=== PATIENT | female | born 1950 | race Two or more races ===

== ENCOUNTER 2016-08-06 10:14 | Day surgery (SDC) | payer MEDICAID ==
[2016-08-06] MEDS ORDERED: LIDOCAINE 1% 2 ML INJ ID PRN (10:58)
[2016-08-06] MEDS ORDERED: LR 1,000 ML IV SCH (11:00)
[2016-08-06] MEDS ORDERED: fentaNYL 100 MCG/2 ML INJ ONE (11:50)
[2016-08-06] MEDS ORDERED: PROPOFOL/EMULSION 500 MG/50 ML BOTTLE IV ONE (11:50)
[2016-08-06] MEDS ORDERED: LIDOCAINE 2% 5 ML SDV ONE (11:50)
[2016-08-06] MEDS ORDERED: oxyCODONE IR 5 MG TAB ONE (12:36)
--- NOTE | 2016-08-06 13:34 | GPN ---
[f rep st] PROCEDURE NOTE DATE OF PROCEDURE: 08/06/2016 PROCEDURE: Colonoscopy. INDICATION: The patient is a 65-year-old female who presents with a history of adenomas who presents for surveillance colonoscopy. CONSENT: Risks, benefits, and alternatives of the procedure were discussed in great detail with the patient, as well as the son who was present. Risks of infection, bleeding, perforation, and sedation were discussed. All questions were answered. Informed consent was obtained. MEDICATIONS: Propofol. Please see Anesthesiology report for details. ESTIMATED BLOOD LOSS: None. COLONOSCOPIC EVALUATION: A rectal exam was performed and no palpable mass was felt. The scope was introduced via the rectum and advanced to the cecum, where the ileocecal valve and appendiceal orifice were seen. The patient was noted to have scattered diverticula in the sigmoid colon, descending colon, transverse colon, and ascending colon. No masses or polyps were seen. IMPRESSION: 1. Diverticulosis. 2. No polyps seen. RECOMMENDATIONS: 1. Fiber supplementation. 2. Repeat colonoscopy in 5 years. /[id number]/MODL MTDD
== END 2016-08-06 14:00 | disposition home or self-care (01) ==
LOC: FSGY 10:14
PROVIDERS: ATTEND Internal Medicine Gastroenterology
PROC: 0DJD8ZZ Inspection of Lower Intestinal Tract, Via Natural or Artificial Opening Endoscopic (ICD-10-PCS; principal; 2016-08-06 11:45)
DX: Z12.11 Encounter for screening for malignant neoplasm of colon (principal); K57.30 Diverticulosis of large intestine without perforation or abscess without bleeding; I10 Essential (primary) hypertension; E11.9 Type 2 diabetes mellitus without complications; M06.9 Rheumatoid arthritis, unspecified
CPT/HCPCS: J2704; J3010

== ENCOUNTER → 2016-12-12 | Outpatient (CLI) | payer OTHER, MEDICAID | LOC: FIMAGING 10:09 | PROVIDERS: ATTEND Family Medicine | DX: M46.94 Unspecified inflammatory spondylopathy, thoracic region (principal); M48.06 Spinal stenosis, lumbar region; M51.36 Other intervertebral disc degeneration, lumbar region; M51.86 Other intervertebral disc disorders, lumbar region; C43.9 Malignant melanoma of skin, unspecified ==

== ENCOUNTER 2017-01-23 10:23 | Day surgery (SDC) | payer MEDICAID, OTHER ==
[~2017-01-23 10:23] MED LIST: NS 1,000 ML IV SCH
[2017-01-23] MEDS ORDERED: NALOXONE HCL 0.4 MG/ML INJ ONE (11:38)
[2017-01-23] MEDS ORDERED: MIDAZOLAM 2 MG/2 ML VIAL ONE (11:38)
[2017-01-23] MEDS ORDERED: FLUMAZENIL 0.5 MG/5 ML MDV IVP ONE (11:38)
[2017-01-23] MEDS ORDERED: fentaNYL 100 MCG/2 ML INJ ONE (11:38)
[2017-01-23] MEDS ORDERED: ONDANSETRON 4 MG/2 ML VIAL IVP PRN (16:11)
[2017-01-23] MEDS ORDERED: ACETAMINOPHEN 325 MG TAB PO PRN (16:11)
[2017-01-23 17:17] VITALS: BP 125/53; RESP 10; O2SAT 90
== END 2017-01-23 17:07 | disposition home or self-care (01) ==
LOC: FIMAGING 10:23
PROVIDERS: ATTEND Internal Medicine Hematology & Oncology
PROC: 0B9G3ZX Drainage of Left Upper Lung Lobe, Percutaneous Approach, Diagnostic (ICD-10-PCS; principal; 2017-01-23 14:00)
PROC: 0BBG3ZX Excision of Left Upper Lung Lobe, Percutaneous Approach, Diagnostic (ICD-10-PCS; principal; 2017-01-23 14:00)
DX: D14.32 Benign neoplasm of left bronchus and lung (principal); J95.830 Postprocedural hemorrhage of a respiratory system organ or structure following a respiratory system procedure; R04.2 Hemoptysis; C90.00 Multiple myeloma not having achieved remission; R74.0 Nonspecific elevation of levels of transaminase and lactic acid dehydrogenase [LDH]; I10 Essential (primary) hypertension; M06.9 Rheumatoid arthritis, unspecified; E11.9 Type 2 diabetes mellitus without complications; M51.36 Other intervertebral disc degeneration, lumbar region; M85.80 Other specified disorders of bone density and structure, unspecified site; E03.9 Hypothyroidism, unspecified; Z87.442 Personal history of urinary calculi; Z79.52 Long term (current) use of systemic steroids
CPT/HCPCS: J2250; J2310; J3010

== ENCOUNTER → 2018-02-13 | Outpatient (CLI) | payer OTHER, MEDICAID | LOC: FIMAGING 11:57 | PROVIDERS: ATTEND Anesthesiology | DX: M50.321 Other cervical disc degeneration at C4-C5 level (principal) ==

== ENCOUNTER 2018-02-19 05:53 | Observation (INO) | payer OTHER, MEDICAID ==
--- NOTE | 2018-02-14 08:46 | GHP ---
[f rep st] PREOP HISTORY AND PHYSICAL DATE OF ADMISSION: 02/19/2018 PROBLEM: Right knee arthritis. HISTORY OF PRESENT ILLNESS: The patient is a 67-year-old woman with rheumatoid arthritis. She has a dvanced rheumatoid arthritis in her right knee. She has pain in both knees. The pain has been progr essive over the last couple of years. Her activities are now very limited. She is no longer mobile. She complains of popping. She receives Humira injections for rheumatoid arthritis. She is treated for hypertension and anxiety/depression. She has had abnormal liver functions in the past and was told that she had a fatty liver. PAST MEDICAL HISTORY: Treatment for hypertension, rheumatoid arthritis and anxiety/depression. No h istory of heart disease, DVT, hepatitis, MRSA staph infection, sleep apnea or bleeding problems. CURRENT MEDICATIONS: Amlodipine 10 mg per day. Clonazepam 0.5 mg daily. Duloxetine 30 mg per day. Escitalopram a.m. 20 mg per day. Humira injections every 2 weeks. She stopped that 4 weeks prior to surgery. She has used prednisone in the past for her rheumatoid arthritis although she stop that in preparation for her surgery. Celebrex 100 mg per day. Tizanidine 2 mg at bedtime for sleep. Ateno lol 50 mg per day. She also takes 1 baby aspirin per day but she stopped it in preparation for her s urgery. ALLERGIES: Drug allergy: None. Metal allergy: None. Latex allergy: None. SOCIAL HISTORY: The patient is . She does not smoke cigarettes or drink alcohol. Her Englis h is limited. Her son, Ugo, has done the translating. PHYSICAL EXAMINATION: VITAL SIGNS: Height 5 feet 2 inches. Weight 110 pounds. BMI 20.1. EYES: C onjunctivae and sclerae are clear. Pupils are round and reactive. MOUTH: Good oral hygiene. No lo ose teeth. CHEST: Clear. HEART: Regular rhythm, no murmurs. EXTREMITIES: Pertinent findings pryor ited to her right knee. She has a mild effusion. Full extension and 90 degrees of flexion. She has very coarse patellofemoral crepitation with knee flexion. Her ligaments are stable. Her patella is tender to manipulation. IMPRESSION ON ADMISSION: 1. Right knee rheumatoid arthritis, primarily involving the patellofemoral joint. 2. Rheumatoid arthritis. 3. Treatment for hypertension. 4. Treatment for anxiety/depression. PLAN: She will undergo a right total knee arthroplasty. The surgery has been described to her throu gh her son including the risks, complications, expectations, and recovery time. I have stressed the importance of postoperative physical therapy. I have advised her that a small percentage of people d o not get a satisfactory result with a total knee replacement. All of their questions have been answ ered, and she consents to surgery. Copy requested to: Dr. Jakub Miller /[id number]/MODL
[~2018-02-19 05:53] MED LIST changes: -NS 1,000 ML IV SCH; +ROPIVACAINE 0.2% 80 MG, EPINEPHrine 0.2 MG, KETOROLAC TROMETHAMINE 30 MG in SYRINGE 0 ML IU ONE; +TRANEXAMIC ACID 1,000 MG in NS 100 ML IV ONE; +TRANEXAMIC ACID 3,000 MG in NS (SYRINGE) 50 ML IRR ONE
[2018-02-19] MEDS ORDERED: ceFAZolin 2 GM/DEXTROSE 100 ML IV ONE (05:55)
[2018-02-19] MEDS ORDERED: POVIDONE-IODINE 20 ML in SODIUM CL IRRIG SOLUTION 500 ML IRR ONE (05:55)
[2018-02-19] MEDS ORDERED: ONDANSETRON 4 MG/2 ML VIAL IVP ONE (05:55)
[2018-02-19] MEDS ORDERED: GABAPENTIN 300 MG CAP PO ONE (05:55)
[2018-02-19] MEDS ORDERED: FAMOTIDINE 20 MG TAB PO ONE (05:55)
[2018-02-19] MEDS ORDERED: DEXAMETHASONE 4 MG/ML VIAL IVP ONE (05:55)
[2018-02-19] MEDS ORDERED: ACETAMINOPHEN 325 MG TAB PO ONE (05:55)
[2018-02-19] MEDS ORDERED: LIDOCAINE 1% 2 ML INJ ID PRN (05:56)
[2018-02-19] MEDS ORDERED: LR 1,000 ML IV ONE (05:56)
[2018-02-19] MEDS ORDERED: TRANEXAMIC ACID 1,000 MG in NS 100 ML IV ONE (06:00)
[2018-02-19] MEDS ORDERED: ROPIVACAINE 0.2% 80 MG, EPINEPHrine 0.2 MG, KETOROLAC TROMETHAMINE 30 MG in SYRINGE 0 ML IU ONE (06:00)
[2018-02-19] MEDS ORDERED: TRANEXAMIC ACID 3,000 MG/50 ML BAG IRR ONE (06:36)
[2018-02-19] MEDS ORDERED: VANCOMYCIN 1 GM VIAL ONE (06:37)
[2018-02-19] MEDS ORDERED: ceFAZolin 1 GM/5 ML SYR ONE (06:37)
--- NOTE | 2018-02-19 07:04 | PDHPUP ---
History & Physical Update H&P update statement: This history and physical update is based on an assessment of the patient which was completed after admission or registration (within 24 hours), but prior to the surgery/procedure. H&P update: H&P reviewed & patient examined
[2018-02-19] MEDS ORDERED: MIDAZOLAM 2 MG/2 ML VIAL IVP ONE (07:06)
--- NOTE | 2018-02-19 07:06 | PDANEPAE ---
ANE History of Present Illness 67 yo for tka ANE Past Medical History - Cardiovascular History Hx Hypertension: Yes Hx Arrhythmias: No Hx Chest Pain: No Hx Coronary Artery / Peripheral Vascular Disease: No Hx CHF / Valvular Disease: No Hx Palpitations: No Cardiovascular History Comment: NO CP - Pulmonary History Hx COPD: No Hx Asthma/Reactive Airway Disease: No Hx Recent Upper Respiratory Infection: No Hx Oxygen in Use at Home: No Hx Sleep Apnea: No Sleep Apnea Screening Result - Last Documented: Negative - Neurologic History Hx Cerebrovascular Accident: No Hx Seizures: No Hx Dementia: No - Endocrine History Hx Diabetes: Yes Endocrine History Comment: PREDIABETIC - NO MEDS - Renal History Hx Renal Disorders: No - Liver History Hx Hepatic Disorders: Yes Hepatic History Comment: ELEV ENZYMES RECENTLY - Neurological & Psychiatric Hx Hx Neurological and Psychiatric Disorders: Yes Neurological / Psychiatric History Comment: Anxiety - Cancer History Hx Cancer: No - Congenital Disorder History Hx Congenital Disorders: No - GI History Hx Gastrointestinal Disorders: Yes Gastrointestinal History Comment: ACID REFLUX - Other Health History Other Health History: RHEUMATOID ARTHRITIS - Chronic Pain History Chronic Pain: Yes (CHRONIC PAIN KNEES, ELBOWS, HIPS, SHOULDERS) - Surgical History Prior Surgeries: GALL STONES. HYSTERECTOMY. COLONOSCOPY. Bone marrow biopsy ANE Review of Systems Review of Systems: - Exercise capacity METS (RN): 2 METS ANE Patient History - Allergies Allergies/Adverse Reactions: metoclopramide HCl [From Reglan] Allergy (Verified 02/11/18 14:03) Hives - Home Medications Home medications: home medication list seen and reviewed Home Medications: Atenolol [Tenormin 50 mg (*)] 50 mg PO DAILY 02/11/18 [Last Taken 02/19/18 03:00 ] Betamethasone Bailey 0.1% [Betamethasone Bailey 0.1% (*)] 1 vilma TOP DAILY PRN [Last Taken 02/05/18] Calcium Carb W/Vit D [Calcium Carb W/Vit D 500/200 (*)] 500 mg PO BID 02/11/18 [ Last Taken 02/05/18] DULoxetine [Cymbalta 30 MG (*)] 30 mg PO DAILY 02/11/18 [Last Taken 02/17/18 21: 00] Mirtazapine [Remeron] 30 mg PO HS 02/11/18 [Last Taken 02/17/18 21:00] Omeprazole 40 mg PO DAILY 02/11/18 [Last Taken 02/19/18 03:00] amLODIPine BESYLATE [Norvasc 10 mg (*)] 10 mg PO DAILY 02/11/18 [Last Taken 03:00] celeCOXIB [CeleBREX] 100 mg PO BID 02/11/18 [Last Taken 02/18/18 21:00] fentaNYL [Duragesic 12 MCG Patch (*)] 12 mcg TD Q72H 02/11/18 [Last Taken 18:00] oxyCODONE HCL/ACETAMINOPHEN [Percocet 10-325 mg Tablet] 1 each PO Q6H PRN [Last Taken 02/18/18 21:00] - Smoking Hx Smoking Status: Never smoked - Family Anes Hx Family Hx Anesthesia Complications: NEG ANE Labs/Vital Signs - Vital Signs Height: 5 ft 3.5 in Weight: 66.678 kg ANE Physical Exam - Airway Neck exam: FROM Mallampati Score: Class 2 Mouth exam: normal dental/mouth exam - Pulmonary Pulmonary: no respiratory distress - Cardiovascular Cardiovascular: regular rate and rhythym - ASA Status ASA Status: II ANE Anesthesia Plan Anesthesia Plan: spinal Regional Anesthesia: continuous NB
[2018-02-19] MEDS ORDERED: PROPOFOL/EMULSION 500 MG/50 ML BOTTLE IV ONE ×2 (07:17→08:33)
[2018-02-19] MEDS: TRANEXAMIC ACID 3,000 MG in NS (SYRINGE) 50 ML IRR ONE ×2 (08:28→08:29)
--- NOTE | 2018-02-19 08:52 | POSTOPPROG ---
Post Op Note Date of Operation: 02/19/18 Surgeon: Dirk Segura Life Enrichment Assistant: Riley Anesthesiologist: Dr. Pittman Anesthesia: IV Sedation, Spinal Post-op Diagnosis: Right knee rheumatoid arthritis Procedure: Right total knee arthroplasty Inf/Abcess present in the surg proc area at time of surgery?: No EBL: 50-100 (Adductor canal block in PACU with indwelling catheter.)
[2018-02-19] MEDS ORDERED: MAGNESIUM HYDROXIDE 30 ML UDCUP PO PRN (09:13)
[2018-02-19] MEDS ORDERED: TEMAZEPAM 15 MG CAP PO PRN (09:13)
[2018-02-19] MEDS ORDERED: BISACODYL 10 MG SUPP PR PRN (09:13)
[2018-02-19] MEDS ORDERED: PROMETHAZINE HCL 25 MG SUPPR PR PRN (09:13)
[2018-02-19] MEDS ORDERED: oxyCODONE IR 5 MG TAB PO PRN (09:13)
[2018-02-19] MEDS ORDERED: PROMETHAZINE HCL 25 MG/ML INJ IVP PRN (09:13)
[2018-02-19] MEDS ORDERED: LACTULOSE 20 GM/30 ML UDCUP PO PRN (09:13)
[2018-02-19] MEDS ORDERED: DIPHENOXYLATE/ATROPINE LOMOTIL 1 TAB PO PRN (09:13)
[2018-02-19] MEDS ORDERED: NS 500 ML IV PRN (09:13)
[2018-02-19] MEDS ORDERED: POLYETHYLENE GLYCOL 3350 17 GM PKT PO PRN (09:13)
[2018-02-19] MEDS ORDERED: ONDANSETRON 4 MG/2 ML VIAL IVP PRN ×2 (09:13→09:26)
[2018-02-19] MEDS ORDERED: diphenhydrAMINE 25 MG CAP PO PRN (09:13)
[2018-02-19] MEDS ORDERED: ONDANSETRON DISINTEGRATING 4 MG TAB PO PRN (09:13)
[2018-02-19] MEDS ORDERED: fentaNYL 12 MCG PATCH TD SCH (09:15)
[2018-02-19] MEDS ORDERED: HYDROmorphONE/DILAUDID 1 MG/ML INJ IVP PRN (09:26)
[2018-02-19] MEDS ORDERED: NALOXONE HCL 0.4 MG/ML INJ IVP PRN ×2 (09:26)
[2018-02-19] MEDS ORDERED: fentaNYL 100 MCG/2 ML INJ IVP PRN (09:26)
--- NOTE | 2018-02-19 09:28 | POSTANESTH ---
Post Anesthetic Evaluation Cardiovascular Status: Normal, Stable Respiratory Status: Tx Decrease in SpO2 Level of Consciousness/Mental Status: Can Participate in Eval Pain Control: Adequate, Prn Tx Ordered Nausea/Vomiting Control: Adequate, Prn Tx Ordered Complications Possibly Related to Anesthesia: None Noted
[2018-02-19] MEDS ORDERED: LR 1,000 ML IV SCH (09:30)
--- NOTE | 2018-02-19 09:39 | GOP ---
[f rep st] OPERATIVE REPORT DATE OF OPERATION: 02/19/2018 SURGEON: Dirk Segura MD RN TRANSPLANT: Dimitri Matta and Aaron Rojas. ANESTHESIA: A combination of Marcaine spinal, IV sedation, and adductor canal block. ANESTHESIOLOGIST: Dr. Petrona Pittman. PREOPERATIVE DIAGNOSIS: Right knee rheumatoid arthritis. POSTOPERATIVE DIAGNOSIS: Right knee rheumatoid arthritis. PROCEDURE PERFORMED: 1. February 19, 2018, a right total knee arthroplasty, cemented, Pereyra and Nephew Journey II, posterio r stabilized. 2. A right knee synovectomy. FINDINGS: ESTIMATED BLOOD LOSS: The estimated blood loss following deflation of the tourniquet was about a 100 to 150 cc. The sponge and needle count were correct on 2 occasions. She was awakened from anesthesia, transferred to her gurney, and taken to PACU in satisfactory condit ion. There were no recognized intraoperative complications. In the PACU, for additional postoperati ve pain control, Dr. Pittman performed an adductor canal block with an indwelling catheter. Dimitri Matta and Aaron Rojas acted as surgical assistants. Their assistance was a medical necess ity. DESCRIPTION OF PROCEDURE: The patient was given 2 g of IV Ancef preoperatively. She also received 1 000 mg of IV tranexamic acid. She was placed on the operating room table and given spinal anesthesia with Marcaine by Dr. Pittman. She was then placed supine and given IV sedation. A Sanchez catheter was not used. She wore a HAYDEE stocking and SCD on the nonoperative leg. A small bolster was placed u nder her right hip to prevent excessive external rotation of the leg. Her right lower extremity was prepped with ChloraPrep from the upper thigh tourniquet to the tips of the toes. It was draped free using sterile sheets, stockinette, and Ioban plastic adhesive drape. The lower leg was wrapped with compressive Coban. The leg was exsanguinated with elevation and a 6-inch compressive wrap, and the p neumatic tourniquet was inflated to 250 mmHg. The World Health Organization time-out was performed to verify the correct patient identity and the c orrect surgical side and site. The [place] time-out was also performed. The [employer] leg holding device was sterilely attached to the operating room table and used throughout the procedure to help position the knee. A slightly curved medial incision was made centered on the patella. Subcutaneous tissues were sharply divided, and hemostasis was obtained using electrocautery . A small medial subcutaneous flap was developed, and the capsule and synovium were opened in a medi al parapatellar fashion. Extensive degenerative changes were present, particularly in the patellofem oral joint. She had extensive hypertrophic, chronically inflamed synovium from her rheumatoid arthri tis. A subtotal synovectomy was performed primarily in the suprapatellar pouch and in the medial and lateral gutters. The medial capsule and periosteum were elevated off the rim of the medial tibial p lateau all the way around to the posteromedial corner. Limited release of the medial collateral liga ment was performed. In order to improve exposure, her patella was prepared first. The original thickness of the patella was measured. Peripheral osteophytes were removed. I cut a flat surface on the back of the patella. She was sized for a 38 mm round resurfacing component. I removed enough bone from the patella such that the remaining bone plus the thickness of the patellar component recreated the original thicknes s of the patella. The composite thickness was 22 mm. The intramedullary alignment guide system was used to set up the distal femoral cut. The distal femu r was cut in 5 degrees of valgus. Because of a slight preoperative flexion contracture, and because I was using a posterior stabilized component, I made a +2 mm cut on the distal femur. The sizing jig was used to determine proper femoral sizing. I shifted the jig anteriorly 1 mm in order to accommod ate a size 4 without notching the anterior cortex. The 5 in 1 cutting block was applied and the ante rior and posterior condylar cuts and chamfer cuts were made. The final jig was used to remove the ce ntral portion of the distal femur to accommodate the posterior stabilized femoral component. I was c areful to determine proper rotation by referencing off Whitesides line and other bony landmarks. Eac h cut was checked for accuracy. The femur was sized for a size 4 posterior stabilized component. Ve ry significant osteoporosis was present. Next the tibia was prepared. The proximal tibial cut was made using the extramedullary alignment netta de system. The cut was made in a few degrees of posterior slope. I was careful to achieve proper va maria eugenia valgus alignment and proper rotation. The posterior compartment was cleared of meniscal remnants and hypertrophic synovium. Osteophytes were removed from the back of her femoral condyles. I check ed the flexion and extension gaps, and they were equal and rectangular. The tibia was sized for a si ze 3 component. With the trial components in place, I selected a 10 mm polyethylene posterior stabil ized tibial insert. The knee came to full extension and flexed to 130 degrees. Her collateral ligam ents were stable and balanced in 90 degrees of flexion and full extension. The trial patellar button was applied and tracking was checked. Tracking was excellent without any digital pressure. Forty cc of the joint anesthetic cocktail was injected into the posterior capsule, the quadriceps mus martha and tendon areas, and the subcutaneous tissues along the skin edges. The surfaces were prepared for cementing. They were carefully cleaned with the pulsating lavage irri gation and thoroughly dried. The CarboJet device was used to blow dry the cancellous surfaces. A do uble batch of high viscosity methylmethacrylate cement with 2 g of powdered vancomycin added was mixe d. While it was still in a doughy state, all 3 components were cemented in place. Excess cement was removed before it hardened. The 10 mm trial tibial insert was re-tried and was the proper thickness. The actual component was in serted and locked into place. The knee was thoroughly irrigated 1 final time with a dilute Betadine solution. The tourniquet was deflated and the total tourniquet time was 43 minutes. I instilled 50 cc of Trane xamic acid into the joint. The joint was packed with a lap sponge and then wrapped with a 6-inch com pressive wrap. This was left up for 3 or 4 minutes. The vastus medialis portion of the extensor mechanism was repaired with several interrupted figure-of -eight #2 FiberWire sutures. The capsule and synovium were closed first with multiple interrupted fi [id number] PDS sutures, followed by a running #2 barbed Ethicon Stratafix PDO suture. Subcutane ous tissues were closed with a running 0 barbed Ethicon Stratafix Monoderm suture. The skin was clos ed with a running 3-0 barbed Ethicon Stratafix Monoderm subcuticular suture. The skin was sealed wit h half-inch Steri-Strips. The wound was covered with a large sterile Mepilex waterproof dressing and a 6-inch compressive wrap. She had a little more than average bleeding because of the synovectomy. A long-leg HAYDEE stocking and SCD were applied, followed by the cooling device. The patient wore a st ocking and SCD on the opposite leg during the procedure. The sacral Mepilex dressing was applied. I used a size 4 cemented Pereyra and Nephew Oxinium posterior stabilized femoral component, size 3 ceme nted tibial base plate, a 10 mm posterior stabilized tibial insert and a 38 mm cemented round all-ale yethylene resurfacing patellar component. /[id number]/MODL
[2018-02-19] MEDS: KETOROLAC 15 MG/1 ML SDV IVP SCH ×3 (12:27→23:47)
[2018-02-19] MEDS: ACETAMINOPHEN 325 MG TAB PO SCH ×3 (12:29→23:46)
[2018-02-19] MEDS: traMADol 50 MG TAB PO PRN ×2 (14:19→20:47)
[2018-02-19] MEDS: ceFAZolin 2 GM/DEXTROSE 100 ML IV SCH ×2 (16:26→23:47)
[2018-02-19] MEDS: CALCIUM CARB W/VIT D 500 MG TAB PO SCH (20:46)
[2018-02-19] MEDS: FAMOTIDINE 20 MG TAB PO SCH (20:47)
[2018-02-19] MEDS: SENNOSIDES/DOCUSATE SODIUM TAB PO SCH (20:47)
[2018-02-19] MEDS: CYCLOBENZAPRINE 10 MG TAB PO PRN (20:53)
[2018-02-19] MEDS: ASPIRIN 325 MG TAB PO SCH (20:59)
[2018-02-19] MEDS ORDERED: MIRTAZAPINE 30 MG TAB PO SCH (21:00)
[2018-02-20] MEDS: KETOROLAC 15 MG/1 ML SDV IVP SCH (06:33)
[2018-02-20] MEDS: ACETAMINOPHEN 325 MG TAB PO SCH ×2 (06:33→12:49)
--- NOTE | 2018-02-20 06:58 | SOAPPROG ---
SOAP Progress Note Assessment/Plan: Assessment: Afebrile. Mild pain so far. She has been walking in her room. She had difficulty sleeping last night. Her dressing is dry. Postoperative hemoglobin and hematocrit are adequate. Postop films look excellent. Plan: Continue physical therapy today. Standing leg length films before discharge. Home physical therapy. Discharge later today. 02/20/18 06:56 Objective: Vital Signs Temp Pulse Resp BP Pulse Ox 36.6 C 58 L 16 122/76 H 93 02/20/18 03:49 02/20/18 03:49 02/20/18 03:49 02/20/18 03:49 02/20/18 03:49 Laboratory Results 02/20/18 05:36 02/19/18 02/20/18 02/21/18 05:59 05:59 05:59 Intake Total 3248 Output Total 560 Balance 2688 ICD10 Worksheet Patient Problems: Problems Problem Status Onset Osteoarthritis of right knee Acute
--- NOTE | 2018-02-20 07:13 | GDS ---
[f rep st] DISCHARGE SUMMARY ADMISSION DIAGNOSIS: Right knee rheumatoid arthritis. DISCHARGE DIAGNOSIS: Right knee rheumatoid arthritis. OPERATIONS PERFORMED: 02/19/2018: 1. Right total knee arthroplasty. 2. Right knee synovectomy. POSTOPERATIVE COMPLICATIONS: None. CONDITION ON DISCHARGE: Improved. DESCRIPTION OF HOSPITAL COURSE: The patient was admitted to the hospital on the morning of surgery. Her admission white blood cell count was 10,130. H and H 13.8 and 40.3. Her electrolytes, BUN and creatinine were normal. The same day, under a combination of Marcaine, spinal, IV sedation, and addu ctor canal block, she underwent a right total knee arthroplasty. Postoperatively, she was treated wi multimodal DVT prophylaxis, including aspirin. On the 1st postoperative day, her hemoglobin and h ematocrit were 9.8 and 29.5. She was seen by Physical Therapy and made satisfactory progress with am bulation, stairs, and knee range of motion. By the time of discharge, she was afebrile, her dressing was dry, and she was independent walking with a walker. DISPOSITION: She is discharged to her home and the care of her family. Her son and her daughter act ed as translators while she was hospitalized. She will have home physical therapy. She may progress to full weightbearing as tolerated on the right. Continue aspirin 325 mg p.o. daily for 21 days. S robert has prescriptions for Celebrex, tramadol and oxycodone for pain control. I will see her back in t he office on March 06, 2018. If there are any problems, she is to call me at the office. Contin sapna sylvester for 1 week. /[id number]/MODL
[2018-02-20] MEDS: traMADol 50 MG TAB PO PRN ×2 (08:40→15:18)
[2018-02-20] MEDS: CYCLOBENZAPRINE 10 MG TAB PO PRN ×2 (08:41→15:18)
[2018-02-20] MEDS: ATENOLOL 50 MG TAB PO SCH ×2 (08:44→08:45)
[2018-02-20] MEDS: ASPIRIN 325 MG TAB PO SCH (08:44)
[2018-02-20] MEDS: FAMOTIDINE 20 MG TAB PO SCH (08:44)
[2018-02-20] MEDS: CALCIUM CARB W/VIT D 500 MG TAB PO SCH (08:45)
[2018-02-20] MEDS: SENNOSIDES/DOCUSATE SODIUM TAB PO SCH (08:45)
[2018-02-20] MEDS ORDERED: DULoxetine 30 MG CAP PO SCH (09:00)
[2018-02-20] MEDS ORDERED: PANTOPRAZOLE SODIUM 40 MG TAB PO SCH (09:00)
[2018-02-20] MEDS ORDERED: FERROUS SULFATE 140 MG TAB.ER PO SCH (09:00)
--- NOTE | 2018-02-20 12:14 | ASMTLACE ---
LEYDI Length of stay for Answers: 1 day current admission Acuity / Level of Answers: Yes Care: Did the patient have an inpatient admission? Comorbidities - select Answers: Diabetes (uncontrolled or all that apply controlled) Opioid dependence / Chronic pain Other Notes: HTN # of Emergency department Answers: 0 visits in the last 6 months Social determinants Answers: Mental health diagnosis (anxiety, depression, pers onality disorders, etc.) Score: 13 Date Signed: 02/20/2018 12:14 PM Electronically Signed By:Nicki Healy RN
--- NOTE | 2018-02-20 12:14 | ASMTDCNOTE ---
Case Management Discharge Discharge Order Complete? Answers: Yes Patient to Obtain Answers: Independently Medications Transportation Arranged Answers: Family/Friends Faxed Final Orders Answers: Yes Family Notified Answers: Yes Discharge Comments Notes: Patient discharged home with supportive family. [facility] with [facility]. Orders sent and received. Date Signed: 02/20/2018 12:13 PM Electronically Signed By:iNcki Healy RN
--- NOTE | 2018-02-20 12:22 | PDIAF ---
- Diagnosis Diagnosis: right knee OA Code Status: Full Code - Medication Management Discharge Medications: Medications to Continue on Transfer Atenolol [Tenormin 50 mg (*)] 50 mg PO DAILY 02/11/18 [Last Taken 02/19/18 03:00 ] Betamethasone Bailey 0.1% [Betamethasone Bailey 0.1% (*)] 1 vilma TOP DAILY PRN [Last Taken 02/05/18] Calcium Carb W/Vit D [Calcium Carb W/Vit D 500/200 (*)] 500 mg PO BID 02/11/18 [ Last Taken 02/05/18] DULoxetine [Cymbalta 30 MG (*)] 30 mg PO DAILY 02/11/18 [Last Taken 02/17/18 21: 00] Mirtazapine [Remeron] 30 mg PO HS 02/11/18 [Last Taken 02/17/18 21:00] Omeprazole 40 mg PO DAILY 02/11/18 [Last Taken 02/19/18 03:00] amLODIPine BESYLATE [Norvasc 10 mg (*)] 10 mg PO DAILY 02/11/18 [Last Taken 03:00] fentaNYL [Duragesic 12 MCG Patch (*)] 12 mcg TD Q72H 02/11/18 [Last Taken 18:00] Acetaminophen [Tylenol 325mg (*)] 650 mg PO Q6HRS tab 02/20/18 [Last Taken Unknown] Aspirin [Aspirin 325 mg (*)] 325 mg PO DAILY tab 02/20/18 [Last Taken Unknown] Ferrous Sulfate [Slow Fe 140 MG (*)] 140 mg PO DAILY tab.er 02/20/18 [Last Taken Unknown] Ondansetron Odt [Zofran Odt 4 mg (*)] 4 mg PO Q4HRS PRN tab 02/20/18 [Last Taken Unknown] Sennosides/Docusate Sodium [Senokot-S] 1 - 2 tab PO BID tab 02/20/18 [Last Taken Unknown] celeCOXIB [Celebrex (*)] 200 mg PO DAILY cap 02/20/18 [Last Taken Unknown] oxyCODONE IR [Oxycodone Ir (*)] 5 - 10 mg PO Q3HRS PRN tab 02/20/18 [Last Taken Unknown] traMADol [Ultram 50 mg (*)] 50 mg PO Q6HRS PRN tab 02/20/18 [Last Taken Unknown ] Discharge Medications: Refer to the Discharge Home Medication list for PRN reason. - Orders Services needed: Home Care, Physical Therapy Home Care Face to Face: I certify that this patient was under my care and that I had the required [id number] encounter meeting the encounter requirements on the discharge day. My findings support the fact that the patient is homebound as defined in Home Care Face to Face Continued: CMS Chapter 7 Medicare Benefits Manual 30.1.1 , The condition of the patient is such that there exists a normal inability to leave home and consequently, leaving home would require a considerable and taxing effort. Diet Recommendation: no restrictions on diet Diet Texture: Regular Texture Diet Oscar Stockings Discontinue Date: 1 week Wound Care Instructions: keep clean and dry. You may shower. Activity/Weight Bearing Restrictions: as tolerated. Equipment: Use Zero knee while in bed as tolerated. - Follow Up Care Current Providers and Referrals: Treasure Howard MD [Primary Care Provider] - Dirk Segura MD [Medical Doctor] - 03/06/18
[2018-02-20] MEDS ORDERED: ROPIVACAINE HCL 150 MG/30 ML INJ ONE (12:53)
--- NOTE | 2018-02-20 13:16 | SOAPPROG ---
SOAP Progress Note Assessment/Plan: Assessment: S/p R TKA with pain management including ACNB immediately postop and today. Plan: Ropivacaine 0.5% 20 ml injected in 5 ml aliquots with intermittent negative aspiration. Patient tolerated the procedure well. Catheter removed with tip intact. VS will be monitored for the next 30 minutes. 02/20/18 13:12 Subjective: Patient reports good pain control overnight. Ready to go home. Objective: Vital Signs Temp Pulse Resp BP Pulse Ox 36.6 C 54 L 18 118/75 95 02/20/18 12:00 02/20/18 12:00 02/20/18 12:00 02/20/18 12:00 02/20/18 12:00 Laboratory Results 02/20/18 05:36 02/19/18 02/20/18 02/21/18 05:59 05:59 05:59 Intake Total 3248 Output Total 560 Balance 2688 ICD10 Worksheet Patient Problems: Problems Problem Status Onset Osteoarthritis of right knee Acute
[2018-02-20] MEDS ORDERED: LIPID EMULSION 20% 100 ML IV PRN (13:27)
[2018-02-20 14:22] VITALS: BP 112/64
[2018-02-21] MEDS ORDERED: fentaNYL 12 MCG PATCH TD SCH (18:00)
== END 2018-02-20 16:29 | disposition home health service (06) ==
LOC: F3N 05:53
PROVIDERS: ADMIT Orthopaedic Surgery; ATTEND Orthopaedic Surgery
PROC: 0SRC0J9 Replacement of Right Knee Joint with Synthetic Substitute, Cemented, Open Approach (ICD-10-PCS; principal; 2018-02-19 07:15)
DX: M06.9 Rheumatoid arthritis, unspecified (principal); I10 Essential (primary) hypertension; M81.0 Age-related osteoporosis without current pathological fracture
CPT/HCPCS: 27447; 73560; 77073; 88311; 97110; 97116; 97161; 97166; 97535; C1713; C1776; G8978; G8979; G8980; G8987; G8988; G8989; J0171; J0690; J1100; J1885; J2250; J2405; J2704; J2795; J3370

== ENCOUNTER 2018-07-16 03:52 | Emergency (ER) | payer OTHER, MEDICAID ==
--- NOTE | 2018-07-16 04:42 | EDPHY ---
H & P Stated Complaint: L KNEE PAIN, AWAITING KNEE REPLACEMENT Time Seen by Provider: 07/16/18 04:41 HPI/ROS: HPI CHIEF COMPLAINT: Joint pain all over HISTORY OF PRESENT ILLNESS: Patient is a very pleasant 67-year-old female she suffers from rheumatoid arthritis, sometime she gets rheumatoid arthritis flares developed pain in her knees hips and wrist. She reports that she has been having a flare recently she took 20 mg of prednisone yesterday and hydrocodone which gave her minimal relief. She states that she has pain in her left knee, bilateral wrists, bilateral hips. She denies any fever. She feels this is very similar to her rheumatoid arthritis flare. She denies any chest pain or shortness of breath denies fever denies vomiting. She is accompanied to the emergency room by her son and at bedside. 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 Her son speaks [place] Citizen and Cam[place]onian fluently and was used for translation. Past Medical History: Significant medical history for hypertension, rheumatoid arthritis, chronic pain, arthritis, depression, TV Past Surgical History: Hysterectomy, cholecystectomy, abdominal surgery Social History: Denies drugs alcohol tobacco. Family History: Noncontributory ROS REVIEW OF SYSTEMS: 10 Systems were reviewed and negative with the exception of the elements mentioned in the history of present illness. Exam Constitutional appears well nontoxic no acute distress elderly, triage nursing summary reviewed, vital signs reviewed, awake/alert. Vital signs stable Eyes normal conjunctivae and sclera, EOMI, PERRLA. HENT normal inspection, atraumatic, moist mucus membranes, no epistaxis, neck supple/ no meningismus, no raccoon eyes. Respiratory clear to auscultation bilaterally, normal breath sounds, no respiratory distress, no wheezing. Cardiovascular rate normal, regular rhythm, no murmur, no edema, distal pulses normal. Gastrointestinal soft, non-tender, no rebound, no guarding, normal bowel sounds, no distension, no pulsatile mass. Genitourinary no CVA tenderness. Musculoskeletal left knee shows small joint effusion however full range of motion, not red, no warmth, wrist bilaterally full range of motion but has discomfort when she ranges IM, no swelling, no midline vertebral tenderness, full range of motion, no calf swelling, no tenderness of extremities, no meningismus, good pulses, neurovascularly intact. Skin pink, warm, & dry, no rash, skin atraumatic. Neurologic awake, alert and oriented x 3, AAOx3, moves all 4 extremities equally, motor intact, sensory intact, CN II-XII intact, normal cerebellar, normal vision, normal speech. Psychiatric normal mood/affect. Heme/Lymph/Immune no lymphadenopathy. Differential Diagnosis: Includes but is not limited to in a particular order RA flare, arthritis, chronic pain, acute on chronic pain Medical Decision Making: Plan for this patient IV establishment IV fluid bolus , IV Solu-Medrol, IV Dilaudid for pain control basic blood work and re-evaluate. Re-evaluation: Patient declined x-ray of the knee. 0610: re-evaluated patient here in the Emergency received IV fluids, IV Solu- Medrol 125 mg, as well as IV Dilaudid 1 mg she is resting comfortably no acute distress. She states she feels much better. Her sinus requesting discharge. The patient's vital signs are stable no acute distress. Patient is requesting discharge home. She states she feels much better pain well controlled. I do recommend she has close follow-up with her rheumatoid doctor. She is comfortable this plan. Son would like to take him home and requesting discharge. Source: Patient - Personal History Current Tetanus Diphtheria and Acellular Pertussis (TDAP): Yes Tetanus Vaccine Date: 1999 - Medical/Surgical History Hx Asthma: No Hx Chronic Respiratory Disease: No Hx Diabetes: Yes Hx Cardiac Disease: Yes Hx Renal Disease: No Hx Cirrhosis: No Hx Alcoholism: No Hx HIV/AIDS: No Hx Splenectomy or Spleen Trauma: No Other PMH: HTN, "CA somewhere in her BACK but it's not active", RA. ELIDIA, HYSTERECTOMY, DEPRESSION,ANXIETY. THYROID TUMOR REMOVED, R KNEE REPLACEMENT - Social History Smoking Status: Never smoked Constitutional: Initial Vital Signs Temperature (C) 36.8 C 07/16/18 03:57 Heart Rate 89 07/16/18 03:57 Respiratory Rate 16 07/16/18 03:57 Blood Pressure 151/78 H 07/16/18 03:57 O2 Sat (%) 94 07/16/18 03:57 O2 Delivery Mode Room Air Allergies/Adverse Reactions: metoclopramide HCl [From Reglan] Allergy (Verified 02/11/18 14:03) Hives metoclopramide HCl Allergy (Unknown, Uncoded 02/20/18 16:01) Hives Home Medications: Medication Instructions Recorded Atenolol [Tenormin 50 mg (*)] 50 mg PO DAILY 02/11/18 Betamethasone Bailey 0.1% 1 vilma TOP DAILY PRN 02/11/18 [Betamethasone Bailey 0.1% (*)] Calcium Carb W/Vit D [Calcium Carb 500 mg PO BID 02/11/18 W/Vit D 500/200 (*)] DULoxetine [Cymbalta 30 MG (*)] 30 mg PO DAILY 02/11/18 Mirtazapine [Remeron] 30 mg PO HS 02/11/18 Omeprazole 40 mg PO DAILY 02/11/18 amLODIPine BESYLATE [Norvasc 10 mg 10 mg PO DAILY 02/11/18 (*)] fentaNYL [Duragesic 12 MCG Patch 12 mcg TD Q72H 02/11/18 (*)] Acetaminophen [Tylenol 325mg (*)] 650 mg PO Q6HRS tab 02/20/18 Aspirin [Aspirin 325 mg (*)] 325 mg PO DAILY tab 02/20/18 Ferrous Sulfate [Slow Fe 140 MG] 140 mg PO DAILY tab.er 02/20/18 Ondansetron Odt [Zofran Odt 4 mg 4 mg PO Q4HRS PRN tab 02/20/18 (*)] Sennosides/Docusate Sodium 1 - 2 tab PO BID tab 02/20/18 [Senokot-S] celeCOXIB [Celebrex (*)] 200 mg PO DAILY cap 02/20/18 oxyCODONE IR [Oxycodone Ir (*)] 5 - 10 mg PO Q3HRS PRN tab 02/20/18 traMADol [Ultram 50 mg (*)] 50 mg PO Q6HRS PRN tab 02/20/18 Medical Decision Making - Data Points Laboratory Results: Laboratory Results 07/16/18 05:00 07/16/18 05:00 07/16/18 07/16/18 05:00 05:00 WBC 8.54 10^3/uL 10^3/uL (3.80-9.50) RBC 3.51 10^6/uL L 10^6/uL (4.18-5.33) Hgb 11.0 g/dL L g/dL (12.6-16.3) Hct 33.2 % L % (38.0-47.0) MCV 94.6 fL fL (81.5-99.8) MCH 31.3 pg pg (27.9-34.1) MCHC 33.1 g/dL g/dL (32.4-36.7) RDW 14.5 % % (11.5-15.2) Plt Count 233 10^3/uL 10^3/uL (150-400) MPV 8.1 fL L fL (8.7-11.7) Neut % (Auto) 63.1 % % (39.3-74.2) Lymph % (Auto) 26.3 % % (15.0-45.0) [place] % (Auto) 7.7 % % (4.5-13.0) Eos % (Auto) 2.0 % % (0.6-7.6) Baso % (Auto) 0.5 % % (0.3-1.7) Nucleat RBC Rel Count 0.0 % % (0.0-0.2) Absolute Neuts (auto) 5.39 10^3/uL 10^3/uL (1.70-6.50) Absolute Lymphs (auto) 2.25 10^3/uL 10^3/uL (1.00-3.00) Absolute Monos (auto) 0.66 10^3/uL 10^3/uL (0.30-0.80) Absolute Eos (auto) 0.17 10^3/uL 10^3/uL (0.03-0.40) Absolute Basos (auto) 0.04 10^3/uL 10^3/uL (0.02-0.10) Absolute Nucleated RBC 0.00 10^3/uL 10^3/uL (0-0.01) Immature Gran % 0.4 % % (0.0-1.1) Immature Gran # 0.03 10^3/uL 10^3/uL (0.00-0.10) Sodium 140 mEq/L mEq/L (135-145) Potassium 3.8 mEq/L mEq/L (3.5-5.2) Chloride 111 mEq/L H mEq/L (97-110) Carbon Dioxide 22 mEq/l mEq/l (22-31) Anion Gap 7 mEq/L mEq/L (6-14) BUN 17 mg/dL mg/dL (7-23) Creatinine 0.9 mg/dL mg/dL (0.6-1.0) Estimated GFR > 60 Glucose 172 mg/dL H mg/dL (70-100) Calcium 8.7 mg/dL mg/dL (8.5-10.4) Medications Given: Discontinued Medications Hydromorphone HCl (Dilaudid) 1 mg IVP EDNOW ONE Stop: 07/16/18 04:55 Last Admin: 07/16/18 05:05 Dose: 1 mg Sodium Chloride (Ns) 1,000 mls @ 0 mls/hr IV EDNOW ONE; Wide Open PRN Reason: Protocol Stop: 07/16/18 04:55 Last Admin: 07/16/18 05:05 Dose: 1,000 mls Methylprednisolone Sodium Succinate (Solu-Medrol) 125 mg IVP EDNOW ONE Stop: 07/16/18 04:55 Last Admin: 07/16/18 05:05 Dose: 125 mg Ondansetron HCl (Zofran) 4 mg IVP EDNOW ONE Stop: 07/16/18 04:55 Last Admin: 07/16/18 05:05 Dose: 4 mg Departure - Departure Disposition: Home, Routine, Self-Care Clinical Impression: Rheumatoid arthritis flare Condition: Good Instructions: Rheumatoid Arthritis (ED) Additional Instructions: 1. Please follow up with her doctor 2. Return to the emergency room if you have worsening symptoms questions or concerns. Referrals: Treasure oHward MD [Primary Care Provider] - As per Instructions
[2018-07-16] MEDS ORDERED: ONDANSETRON 4 MG/2 ML VIAL IVP ONE (04:54)
[2018-07-16] MEDS ORDERED: methylPREDNISolone SOD SUCC 125 MG/2 ML VIAL IVP ONE (04:54)
[2018-07-16] MEDS ORDERED: NS 1,000 ML IV ONE (04:54)
[2018-07-16] MEDS ORDERED: HYDROmorphONE/DILAUDID 2 MG/ML INJ IVP ONE (04:54)
[2018-07-16 05:08] LABS: PLATELET COUNT 233 10^3/uL (150-400)
[2018-07-16 06:19] VITALS: BP 122/72
== END 2018-07-16 06:19 | disposition home or self-care (01) ==
DX: M06.9 Rheumatoid arthritis, unspecified (principal); I10 Essential (primary) hypertension; E86.9 Volume depletion, unspecified
CPT/HCPCS: 96361; 96374; 96375; 99284; J1170; J2405; J2930

== ENCOUNTER 2018-08-06 09:27 | Observation (INO) | payer OTHER, MEDICAID ==
[~2018-08-06 09:27] MED LIST changes: +POVIDONE-IODINE 20 ML in SODIUM CL IRRIG SOLUTION 500 ML IRR ONE
[2018-08-06] MEDS ORDERED: ACETAMINOPHEN 325 MG TAB PO ONE (09:41)
[2018-08-06] MEDS ORDERED: ceFAZolin 2 GM/DEXTROSE 100 ML IV ONE (09:41)
[2018-08-06] MEDS ORDERED: DEXAMETHASONE 4 MG/ML VIAL IVP ONE (09:41)
[2018-08-06] MEDS ORDERED: GABAPENTIN 300 MG CAP PO ONE (09:41)
[2018-08-06] MEDS ORDERED: FAMOTIDINE 20 MG TAB PO ONE (09:41)
[2018-08-06] MEDS ORDERED: ONDANSETRON 4 MG/2 ML VIAL IVP ONE (09:41)
[2018-08-06] MEDS ORDERED: LIDOCAINE 1% 2 ML INJ ID PRN (09:42)
[2018-08-06] MEDS ORDERED: LR 1,000 ML IV ONE (09:42)
[2018-08-06] MEDS ORDERED: ceFAZolin 1 GM/5 ML SYR ONE (10:18)
[2018-08-06] MEDS ORDERED: VANCOMYCIN 1 GM VIAL ONE (10:19)
[2018-08-06] MEDS ORDERED: TRANEXAMIC ACID 3,000 MG/50 ML BAG IRR ONE (10:19)
[2018-08-06] MEDS ORDERED: MIDAZOLAM 2 MG/2 ML VIAL IVP ONE (10:58)
--- NOTE | 2018-08-06 10:58 | PDANEPAE ---
ANE History of Present Illness here for L TKA ANE Past Medical History - Cardiovascular History Hx Hypertension: Yes Hx Arrhythmias: No Hx Chest Pain: No Hx Coronary Artery / Peripheral Vascular Disease: No Hx CHF / Valvular Disease: No Hx Palpitations: No Cardiovascular History Comment: NO CP - Pulmonary History Hx COPD: No Hx Asthma/Reactive Airway Disease: No Hx Recent Upper Respiratory Infection: No Hx Oxygen in Use at Home: No Hx Sleep Apnea: No Sleep Apnea Screening Result - Last Documented: Negative - Neurologic History Hx Cerebrovascular Accident: No Hx Seizures: No Hx Dementia: No - Endocrine History Hx Diabetes: Yes Endocrine History Comment: PREDIABETIC - NO MEDS - Renal History Hx Renal Disorders: No - Liver History Hx Hepatic Disorders: Yes Hepatic History Comment: ELEV ENZYMES RECENTLY - FLUCTUATE - Neurological & Psychiatric Hx Hx Neurological and Psychiatric Disorders: Yes Neurological / Psychiatric History Comment: Anxiety - Cancer History Hx Cancer: No - Congenital Disorder History Hx Congenital Disorders: No - GI History Hx Gastrointestinal Disorders: Yes Gastrointestinal History Comment: ACID REFLUX - Other Health History Other Health History: RHEUMATOID ARTHRITIS. UPCOMING DENTAL APPT 07/29/17 FOR SENSITIVE TOOTH TO CHECK FOR INFECTION - Chronic Pain History Chronic Pain: Yes (CHRONIC PAIN KNEES, ELBOWS, HIPS, SHOULDERS) - Surgical History Prior Surgeries: R TKA 01/2018. GALL STONES. HYSTERECTOMY. COLONOSCOPY. Bone marrow biopsy ANE Review of Systems Review of systems is: negative Review of Systems: - Exercise capacity Exercise capacity: >=4 METS METS (RN): 4 METS ANE Patient History - Allergies Allergies/Adverse Reactions: metoclopramide HCl [From Reglan] Allergy (Verified 02/11/18 14:03) Hives metoclopramide HCl Allergy (Unknown, Uncoded 02/20/18 16:01) Hives - Home Medications Home medications: home medication list seen and reviewed Home Medications: RX: Atenolol [Tenormin 50 mg (*)] 50 mg PO DAILY 02/11/18 [Last Taken 02/19/18 03:00] RX: DULoxetine [Cymbalta 30 MG (*)] 30 mg PO DAILY 02/11/18 [Last Taken 21:00] RX: Mirtazapine [Remeron] 30 mg PO HS 02/11/18 [Last Taken 02/17/18 21:00] RX: Omeprazole 40 mg PO DAILY 02/11/18 [Last Taken 02/19/18 03:00] RX: amLODIPine BESYLATE [Norvasc 10 mg (*)] 10 mg PO DAILY 02/11/18 [Last Taken 02/19/18 03:00] tiZANidine HCL [Zanaflex 2MG (*)] 2 mg PO HS 07/25/18 [Last Taken Unknown] Adalimumab [Humira] 40 mg SQ Q14D 07/30/18 [Last Taken Unknown] Aspirin [Aspirin 81mg (*)] 81 mg PO DAILY 07/30/18 [Last Taken Unknown] Farley-3 Fatty Acids [Fish Oil 1000 mg (*)] 1,000 mg PO DAILY 07/30/18 [Last Taken Unknown] RX: predniSONE 7.5 mg PO DAILY 07/30/18 [Last Taken Unknown] celeCOXIB [CeleBREX] 100 mg PO DAILY 07/30/18 [Last Taken Unknown] oxyCODONE HCL/ACETAMINOPHEN [Percocet 10-325 mg Tablet] 1 each PO Q4-6PRN PRN [Last Taken Unknown] - NPO status NPO Status: no food or drink >8 hours NPO Since - Liquids (Date): 08/05/18 NPO Since - Liquids (Time): 21:00 NPO Since - Solids (Date): 08/05/18 NPO Since - Solids (Time): 16:00 - Smoking Hx Smoking Status: Never smoked - Family Anes Hx Family Hx Anesthesia Complications: NEG ANE Labs/Vital Signs - Vital Signs Blood Pressure: 162/109 Heart Rate: 80 Respiratory Rate: 18 O2 Sat (%): 93 Height: 165.1 cm Weight: 68.039 kg ANE Physical Exam - Airway Neck exam: FROM Mallampati Score: Class 1 - Pulmonary Pulmonary: no respiratory distress - Cardiovascular Cardiovascular: regular rate and rhythym - ASA Status ASA Status: II ANE Anesthesia Plan Anesthesia Plan: MAC, spinal Regional Anesthesia: adductor canal FNB
[2018-08-06] MEDS ORDERED: PROPOFOL/EMULSION 500 MG/50 ML BOTTLE IV ONE (11:57)
[2018-08-06] MEDS ORDERED: fentaNYL 100 MCG/2 ML INJ ONE (12:10)
[2018-08-06] MEDS ORDERED: PROPOFOL 200 MG/20 ML VIAL ONE ×2 (12:50→13:13)
[2018-08-06] MEDS ORDERED: NALOXONE HCL 0.4 MG/ML INJ IVP PRN (12:53)
[2018-08-06] MEDS ORDERED: ALBUTEROL 3 ML DEYVIAL IH PRN (12:53)
[2018-08-06] MEDS ORDERED: NS 500 ML IV PRN ×2 (12:53→13:50)
[2018-08-06] MEDS ORDERED: LR 500 ML IV PRN (12:53)
[2018-08-06] MEDS ORDERED: HYDROmorphONE/DILAUDID 2 MG/ML INJ IVP PRN (12:53)
[2018-08-06] MEDS ORDERED: ONDANSETRON 4 MG/2 ML VIAL IVP PRN ×2 (12:53→13:50)
[2018-08-06] MEDS ORDERED: fentaNYL 100 MCG/2 ML INJ IVP PRN (12:53)
--- NOTE | 2018-08-06 13:37 | POSTOPPROG ---
Post Op Note Date of Operation: 08/06/18 Surgeon: Dirk Segura Project Finance Analyst: Paxton/Bob Anesthesiologist: Isiah Post-op Diagnosis: Left knee rheumatoid arthritis Procedure: Left total knee arthroplasty Inf/Abcess present in the surg proc area at time of surgery?: No EBL: 50-100 (Adductor canal block in PACU with indwelling catheter.)
[2018-08-06] MEDS ORDERED: CYCLOBENZAPRINE 10 MG TAB PO PRN (13:50)
[2018-08-06] MEDS ORDERED: POLYETHYLENE GLYCOL 3350 17 GM PKT PO PRN (13:50)
[2018-08-06] MEDS ORDERED: DIPHENOXYLATE/ATROPINE LOMOTIL 1 TAB PO PRN (13:50)
[2018-08-06] MEDS ORDERED: ONDANSETRON DISINTEGRATING 4 MG TAB PO PRN (13:50)
[2018-08-06] MEDS ORDERED: PROMETHAZINE HCL 25 MG/ML INJ IVP PRN (13:50)
[2018-08-06] MEDS ORDERED: traMADol 50 MG TAB PO PRN (13:50)
[2018-08-06] MEDS ORDERED: diphenhydrAMINE 25 MG CAP PO PRN (13:50)
[2018-08-06] MEDS ORDERED: LACTULOSE 20 GM/30 ML UDCUP PO PRN (13:50)
[2018-08-06] MEDS ORDERED: MAGNESIUM HYDROXIDE 30 ML UDCUP PO PRN (13:50)
[2018-08-06] MEDS ORDERED: BISACODYL 10 MG SUPP PR PRN (13:50)
[2018-08-06] MEDS ORDERED: TEMAZEPAM 15 MG CAP PO PRN (13:50)
[2018-08-06] MEDS ORDERED: PROMETHAZINE HCL 25 MG SUPPR PR PRN (13:50)
[2018-08-06] MEDS ORDERED: LR 1,000 ML IV SCH (14:00)
--- NOTE | 2018-08-06 14:37 | POSTANESTH ---
Post Anesthetic Evaluation Cardiovascular Status: Normal, Stable Respiratory Status: Normal, Stable Level of Consciousness/Mental Status: Mildly Sleepy, Arousable Pain Control: Adequate, Prn Tx Ordered Nausea/Vomiting Control: Adequate, Prn Tx Ordered Complications Possibly Related to Anesthesia: None Noted
--- NOTE | 2018-08-06 14:41 | GOP ---
[f rep st] OPERATIVE REPORT DATE OF OPERATION: 08/06/2018 SURGEON: Dirk Segura MD MAIL MESSENGER: Richi Matta, PAC and Aaron Rojas CFA. ANESTHESIA: A combination of Marcaine, spinal, IV sedation, and adductor canal block. ANESTHESIOLOGIST: Dr. Nabil Joyce. PREOPERATIVE DIAGNOSIS: Left knee severe rheumatoid arthritis. POSTOPERATIVE DIAGNOSIS: Left knee severe rheumatoid arthritis. PROCEDURE PERFORMED: Left total knee arthroplasty. FINDINGS: DESCRIPTION OF PROCEDURE: The patient was given 2 g of IV Ancef preoperatively within 60 minutes of surgery. She also received 1000 mg of IV tranexamic acid preoperatively. She was placed on the oper ating room table and given spinal anesthesia with Marcaine by Dr. Joyce. She was then placed supine and given IV sedation. A Sanchez catheter was not used. She wore a HAYDEE stocking and SCD on the nonop erative leg. A bolster was placed under her left hip to prevent excessive external rotation of the l eg. Her left lower extremity was prepped with ChloraPrep from the upper thigh tourniquet to the tips of the toes. It was draped free using sterile sheets, stockinette, and Ioban plastic adhesive drape . The lower leg was wrapped with compressive Coban. Her leg was exsanguinated with elevation and a 6-inch compressive wrap, and the pneumatic tourniquet was inflated to 250 mmHg. A [employer] Health Organization time-out was performed to verify the correct patient identity and the cor rect surgical side and site. The [place] time-out was also performed. The [employer] leg holding device was sterilely attached to the operating room table and used throughout the procedure to help position the knee. A straight midline incision was made centered on the patell a. Subcutaneous tissues were sharply divided, and hemostasis was obtained using electrocautery. A m edial subcutaneous flap was developed, and the capsule and synovium were opened in a medial parapatel lar fashion. She had a large effusion of turbid yellow fluid. Very extensive hypertrophic synovium was present in the joint. A subtotal synovectomy was performed particularly in the medial and latera l gutters and in the suprapatellar pouch. The medial capsule and periosteum were elevated off the ri m of the medial tibial plateau all the way around to the posteromedial corner. Her medial collateral ligament was released enough to balance the medial side of the knee. In order to improve exposure, her patella was prepared first. The original thickness of the patella was measured. Peripheral osteophytes were removed. I cut a flat surface on the back of the patella. It was sized for a 38 mm round resurfacing component. I removed enough bone from the patella, such that the remaining bone, plus the thickness of the patellar component recreated the original thickne ss of the patella. The composite thickness was 23 mm. The intramedullary alignment guide system was used to set up the distal femoral cut. The distal femu r was cut in 6 degrees of valgus. Sizing jig was used to determine proper femoral sizing. I shifted the jig anteriorly 1 mm in order to accommodate a size 4 without notching the anterior cortex. The 5-in-1 cutting block was applied, and the anterior and posterior condylar cuts and chamfer cuts were made. The final jig was used to remove the central portion of the distal femur to accommodate the po sterior stabilized femoral component. I was careful to determine proper rotation by referencing off Whites[place] line and other bony landmarks. Each cut was checked for accuracy. The femur was sized fo r a size 4 posterior stabilized component. The trial component was tapped securely into place and wa s a very good fit. Next, the tibia was prepared. The proximal tibial cut was made using the extramedullary alignment gu lucy system. The cut was made in a few degrees of posterior slope. I was careful to achieve proper v arus valgus alignment and proper rotation. The posterior compartment was cleared of meniscal remnant s. Osteophytes were removed from the back of her femoral condyles. I checked the flexion extension gaps, and they were equal and rectangular. The tibia was sized for a size 3 component. With the tri al components in place, I selected a 9 mm polyethylene posterior stabilized tibial insert. The knee came to full extension and flexed to 125 degrees. Her collateral ligaments were stable and balanced in 90 degrees of flexion and full extension. The trial patellar button was applied, and patellar tra cking was checked. Tracking was excellent without any digital pressure. 40 cc of the joint anesthetic cocktail were injected into the posterior capsule, the quadriceps muscl e and tendon areas, and the subcutaneous tissues along the skin edges. The surfaces were prepared for cementing. They were carefully cleaned with the pulsating lavage irri gation and thoroughly dried. The CarboJet device was used to blow dry the cancellous surfaces. A do uble batch of high viscosity methylmethacrylate cement with 2 g of powdered vancomycin added was mixe d. While it was still in a doughy state, all [address] components were cemented in place. Excess cement was removed before it hardened. The 9 mm trial tibial insert was re-tried and was the proper thickness. The actual component was ins erted and locked into place. The knee was thoroughly irrigated 1 final time with a dilute Betadine s olution. The tourniquet was deflated. Total tourniquet time was 47 minutes. 50 cc of tranexamic acid were ir rigated into the wound. The patient had very significant osteoporosis in the femur, tibia, and patella. The vastus medialis portion of the extensor mechanism was repaired with several interrupted figure-of -eight #2 FiberWire sutures. The capsule and synovium were closed first with multiple interrupted fi [id number] PDS sutures, followed by a running. barbed Ethicon Stratafix PDO suture. Subcutaneou s tissues were closed with a running 0 barbed Ethicon Stratafix Monoderm suture. The skin was closed with a running 3-0 barbed Ethicon Stratafix Monoderm subcuticular suture. The skin was sealed with half-inch Steri-Strips. The wound was covered with a large Mepilex waterproof dressing and the knee was wrapped with Kerlix and a 6-inch compressive wrap. A long-leg HAYDEE stocking and SCD were applied, followed by the cooling device. She wore a HAYDEE stocking and SCD on the opposite leg during the proc edure. The sacral Mepilex dressing was applied. I used a size 4 Pereyra and Nephew cemented Oxinium posterior stabilized femoral component, size 3 ceme nted tibial base plate, a 9 mm posterior stabilized tibial insert and a 38 mm cemented, round, all-po lyethylene resurfacing patellar component. Estimated blood loss following deflation of the tourniquet was about 100 cc. The sponge and needle count were correct on 2 occasions. The patient was awakened from anesthesia, transferred to her [facility] and taken to PACU in sat isfactory condition. There were no recognized intraoperative complications. In the PACU, for additi onal postoperative pain control, Dr. Joyce performed an adductor canal block with an indwelling cath eter. Dimitri Matta and Aaron Rojas acted as surgical assistants. Their assistance was a medical necess ity for safe completion of the procedure. /[id number]/MODL
[2018-08-06] MEDS ORDERED: MIDAZOLAM 2 MG/2 ML VIAL ONE (16:41)
[2018-08-06] MEDS: KETOROLAC 15 MG/1 ML SDV IVP SCH ×2 (18:09→23:04)
[2018-08-06] MEDS: ACETAMINOPHEN 325 MG TAB PO SCH ×2 (18:10→23:06)
[2018-08-06] MEDS: ceFAZolin 2 GM/DEXTROSE 100 ML IV SCH (20:20)
[2018-08-06] MEDS: SENNOSIDES/DOCUSATE SODIUM TAB PO SCH (20:22)
[2018-08-06] MEDS: oxyCODONE IR 5 MG TAB PO PRN ×2 (20:23→20:57)
[2018-08-06] MEDS: ASPIRIN 325 MG TAB PO SCH (20:26)
[2018-08-06] MEDS ORDERED: tiZANidine HCL 2 MG TAB PO SCH (21:00)
[2018-08-06] MEDS ORDERED: MIRTAZAPINE 30 MG TAB PO SCH (21:00)
[2018-08-07] MEDS: ceFAZolin 2 GM/DEXTROSE 100 ML IV SCH (04:23)
[2018-08-07] MEDS: ACETAMINOPHEN 325 MG TAB PO SCH ×2 (05:01→12:03)
[2018-08-07] MEDS: KETOROLAC 15 MG/1 ML SDV IVP SCH (05:01)
[2018-08-07] MEDS: oxyCODONE IR 5 MG TAB PO PRN ×3 (05:25→11:08)
--- NOTE | 2018-08-07 07:11 | SOAPPROG ---
SOAP Progress Note Assessment/Plan: Assessment: Afebrile. She is having a lot more pain with this total knee than she had with the last 1. She was able to get up and stand and take a few steps in the room yesterday. She had a Sanchez catheter in the PACU but has been able to void since then. Postop H&H is good. Postop films look good. Her dressing is dry. Plan: Up with physical therapy today. Control pain. She will get another dose of medication through her adductor canal catheter. Standing alignment film today. Discharge later today. 08/07/18 07:09 Objective: Vital Signs Temp Pulse Resp BP Pulse Ox 36.7 C 71 16 178/86 H 94 08/07/18 04:00 08/07/18 04:00 08/07/18 04:00 08/07/18 04:00 08/07/18 04:00 Laboratory Results 08/07/18 04:47 08/06/18 08/07/18 08/08/18 05:59 05:59 05:59 Intake Total 1178 Output Total 1675 Balance -497 ICD10 Worksheet Patient Problems: Problems Problem Status Onset Osteoarthritis of left knee Acute Osteoarthritis of right knee Acute
--- NOTE | 2018-08-07 07:28 | GDS ---
[f rep st] DISCHARGE SUMMARY ADMISSION DIAGNOSIS: Left knee severe rheumatoid arthritis. DISCHARGE DIAGNOSIS: Left knee severe rheumatoid arthritis. OPERATION PERFORMED: 08/06/2018, a left total knee arthroplasty. POSTOPERATIVE COMPLICATIONS: None. CONDITION ON DISCHARGE: Improved. DESCRIPTION OF HOSPITAL COURSE: Patient was admitted to the hospital on the morning of surgery. Her white blood cell count was 13,150. H and H 11.4 and 35.2. Electrolytes, BUN and creatinine were no rmal. The same day, under a combination of Marcaine spinal, IV sedation and adductor canal block, vinod rosenberg underwent a left total knee arthroplasty. Postoperatively, she was treated with multimodal DVT pro phylaxis, including aspirin. She required urinary catheterization 1 time in the PACU, but was able t o void spontaneously after that. She had quite a bit of postoperative pain which slowed her progress with walking. On the first postoperative day, her hemoglobin and hematocrit were 11.5 and 35.5. Vinod rosenberg was seen by Physical Therapy and made gradual progress with walking and stairs. By the time of dis charge, she was afebrile and was independent walking with her walker. DISPOSITION: Patient is discharged to her home. She will have home physical therapy. She may progr ess to full weightbearing on the left as tolerated. She has prescriptions for oxycodone, tramadol an d Celebrex for pain control. I will see her back in the office on August 21, 2018. Continue HAYDEE malave tockings for 1 week. If there any problems, she is to call me at the office. /[id number]/MODL
[2018-08-07] MEDS ORDERED: FERROUS SULFATE 325 MG TAB PO SCH (08:00)
[2018-08-07] MEDS ORDERED: ROPIVACAINE HCL 150 MG/30 ML INJ ONE (08:31)
[2018-08-07] MEDS ORDERED: ATENOLOL 50 MG TAB PO SCH (09:00)
[2018-08-07] MEDS ORDERED: DULoxetine 30 MG CAP PO SCH (09:00)
[2018-08-07] MEDS ORDERED: LIPID EMULSION 20% 100 ML IV PRN (09:07)
[2018-08-07] MEDS: ASPIRIN 325 MG TAB PO SCH (09:37)
[2018-08-07] MEDS: SENNOSIDES/DOCUSATE SODIUM TAB PO SCH (09:37)
--- NOTE | 2018-08-07 09:59 | PDPAINCON ---
Pain Management Consultation Patient referred by : Imelda - Subjective Pain at rest (/10): 3 Pain with activity (/10): 5 Pain is: low, well controlled Activity: able to ambulate, participating in PT - Objective Technique: continuous peripheral nerve block Site: femoral (adductor canal) Catheter site: clean, dry, intact, no erythema/edema/exudate Sensory and motor exam: consistent with block Vital signs: stable - Assessment/Plan Assessment/Plan: pain well-controlled, continue current mgmt Additional comments: POD 1 s/p TKA with AC catheter in place. Re-dosed with ropivacaine 0.5% 20ml and catheter removed uneventfully. Patient overall comfortable, denies adverse effects.
--- NOTE | 2018-08-07 10:08 | PDIAF ---
- Diagnosis Diagnosis: left knee arthritis Code Status: Full Code - Medication Management Discharge Medications: electronically signed and located in the Home Medication List. PICC Care - Routine: N/A - Orders Services needed: Home Care, Physical Therapy Home Care Face to Face: I certify that this patient was under my care and that I had the required [id number] encounter meeting the encounter requirements on the discharge day. My findings support the fact that the patient is homebound as defined in Home Care Face to Face Continued: CMS Chapter 7 Medicare Benefits Manual 30.1.1 , The condition of the patient is such that there exists a normal inability to leave home and consequently, leaving home would require a considerable and taxing effort. Diet Recommendation: no restrictions on diet Diet Texture: Regular Texture Diet Sanchez: Not applicable Oscar Stockings Discontinue Date: 1 week Wound Care Instructions: keep clean and dry. You may shower. Activity/Weight Bearing Restrictions: as tolerated. Equipment: Zero knee while in bed as tolerated. Additional Instructions: You may resume the [employer] at the direction of your rheumatolgist, per our discussion at pre-op. - Follow Up Care Current Providers and Referrals: Treasure Howard MD [Primary Care Provider] - Dirk Segura MD [Medical Doctor] - 08/21/18
--- NOTE | 2018-08-07 10:24 | ASMTLACE ---
LEYDI Length of stay for Answers: 2 days current admission Acuity / Level of Answers: No Care: Did the patient have an inpatient admission? Comorbidities - select Answers: Diabetes (uncontrolled or all that apply controlled) Opioid dependence / Chronic pain Other Notes: HTN # of Emergency department Answers: 1-2 visits in the last 6 months Social determinants Answers: Mental health diagnosis (anxiety, depression, pers onality disorders, etc.) Score: 12 Date Signed: 08/07/2018 10:24 AM Electronically Signed By:Park Trevino
--- NOTE | 2018-08-07 11:42 | ASMTCMCOM ---
CM Note CM Note Notes: Pt had planned OA of knee. PT rec outpatient, ordered [facility]. Spoke with pt, dghtr Abbi and son Ugo and they do want H[facility] PT, choosing [facility]. Orders to be obtained via [facility]. Pt address/phone verified. Pt is primarily mono-lingual Croatian speaking. Ugo is the contact and is Greenlandic speaking. Abbi states pt will have family with her at all times who can translate for home care if needed. Date Signed: 08/07/2018 11:42 AM Electronically Signed By:JOSE Harmon
[2018-08-07 11:49] VITALS: BP 140/86
--- NOTE | 2018-08-07 16:29 | ASDISCHSUM ---
Discharge Information Plan Status:Home with Home Health Medically Cleared to Leave: Discharge Date:08/07/2018 01:49 PM CM D/C Disposition: ADT D/C Disposition:Home Health Service Projected Discharge Date:08/07/2018 11:00 AM Transportation at D/C: Discharge Delay Reason: Follow-Up Date:08/07/2018 11:00 AM Discharge Slot: Final Diagnosis: Placement Information Referral Type:*Home Health Care Services Referral ID:[id number] Provider Name:[facility] Address 1:[address] Address 2: City:[place] Selection Factors: State:[place] Patient Contact Information Contact Name:FREDERIC Relationship:Son Address:[address] Work Phone: City:[place] Alternate Phone: State/Zip Code:[place] [address] Email: Financial Information Financial Class:Medicare Primary Plan Desc:MEDICARE OUTPATIENT Primary Plan Number:[id number] Secondary Plan Desc:MED[place] Secondary Plan Number:[id number] Assessment Information LACE LACE Length of stay for Answers: 2 days current admission Acuity / Level of Answers: No Care: Did the patient have an inpatient admission? Comorbidities - select Answers: Diabetes (uncontrolled or all that apply controlled) Opioid dependence / Chronic pain Other Notes: HTN # of Emergency department Answers: 1-2 visits in the last 6 months Social determinants Answers: Mental health diagnosis (anxiety, depression, pers onality disorders, etc.) Score: 12 Date Signed: 08/07/2018 10:24 AM Electronically Signed By:Park Trevino [facility] CM Progress Note CM Note CM Note Notes: Pt had planned OA of knee. PT rec outpatient, ordered [facility]. Spoke with pt, dghtr Abbi and son Ugo and they do want C PT, choosing [facility]. Orders to be obtained via [facility]. Pt address/phone verified. Pt is primarily mono-lingual Chinese speaking. Ugo is the contact and is Romansh speaking. Abbi states pt will have family with her at all times who can translate for home care if needed. Date Signed: 08/07/2018 11:42 AM Electronically Signed By:JOSE Harmon Intervention Information
== END 2018-08-07 13:49 | disposition home health service (06) ==
LOC: F3N 09:27
PROVIDERS: ADMIT Orthopaedic Surgery; ATTEND Orthopaedic Surgery
PROC: 0SRD0J9 Replacement of Left Knee Joint with Synthetic Substitute, Cemented, Open Approach (ICD-10-PCS; principal; 2018-08-06 12:15)
DX: M17.12 Unilateral primary osteoarthritis, left knee (principal); E11.9 Type 2 diabetes mellitus without complications; Z96.651 Presence of right artificial knee joint
CPT/HCPCS: 27447; 73560; 77073; 88311; 97116; 97161; 97165; C1713; C1776; J0171; J0690; J1100; J1885; J2250; J2405; J2704; J2795; J3010; J3370